=== PATIENT | male | born 1990 ===

== ENCOUNTER 2017-08-27 03:25 | Emergency (ER) | payer OTHER ==
--- NOTE | 2017-08-27 04:30 | ED PDOC ---
Lower Extremity Pain/Injury Chief Complaint (Provider): right lower leg trauma and cut History Per: Patient History/Exam Limitations: no limitations Onset/Duration Of Symptoms: Hrs Current Symptoms Are (Timing): Still Present Severity: Moderate Pain Scale Rating Of: 7 Additional History Per: Patient Additional Complaint(s): 27 yr old M presents to ED with complaint of trauma and laceration to RLE. Patient reports he was running home and could not see due to the rain, he accidentally ran into a street post and noticed blood coming from below his right knee. He made it home and noticed a cut below his right knee, he poured hydrogen peroxide on it and came to the ED. Denies any PMHx. Denies ingestions of Etoh or drugs. Patient does not have a PMD. PMD: none PMHx: denies SurgHx: denies FMHx: noncontributory SocHx: denies tobacco/ Etoh or drugs Medications: none Allergies: NKDA - Knee Description Of Injury: Laceration (below right knee) - Risk Factors DVT Risk Factors: Pos: None <Tatyana Santamaria - Last Filed: 08/27/17 06:42> <Abdon Cuenca - Last Filed: 08/27/17 21:09> Time Seen by Provider: 08/27/17 03:52 Chief Complaint (Nursing): Lower Extremity Problem/Injury Supervising Attending Note - Attestation: I have personally seen and examined this patient.: Yes I have fully participated in the care of the patient.: Yes I have reviewed all pertinent clinical information, including history, physical exam and plan: Yes - Notes: Notes:: I supervised the procedure. <Abdon Cuenca - Last Filed: 08/27/17 21:09> Past Medical History Vital Signs: Last Vital Signs Temp 98.3 F 08/27/17 03:38 Pulse 79 08/27/17 03:38 Resp 16 08/27/17 03:38 BP 133/88 08/27/17 03:38 Pulse Ox 98 08/27/17 03:38 - Medical History PMH: No Chronic Diseases - Surgical History Surgical History: No Surg Hx - Family History Family History: States: No Known Family Hx - Living Arrangements Living Arrangements: With Family - Social History Current smoker - smoking cessation education provided: No Ex-Smoker (has not smoked in the last 12 months): No Alcohol: None Drugs: Denies <Tatyana Santamaria - Last Filed: 08/27/17 06:42> Vital Signs: Last Vital Signs Temp 98.2 F 08/27/17 06:55 Pulse 77 08/27/17 06:55 Resp 18 08/27/17 06:55 BP 136/77 08/27/17 06:55 Pulse Ox 100 08/27/17 06:55 <Abdon Cuenca - Last Filed: 08/27/17 21:09> - Home Medications Home Medications: Ambulatory Orders Medication Instructions Recorded Cefuroxime Axetil [Cefuroxime] 500 mg PO Q12 10 Days #20 tablet 08/27/17 - Allergies Allergies/Adverse Reactions: Allergies Allergy/AdvReac Type Severity Reaction Status Date / Time No Known Allergies Allergy Verified 08/27/17 03:38 Wells Criteria for PE - Wells Criteria for Pulmonary Embolism Clinical Signs and Symptoms of DVT: No P.E is #1 Diagnosis, or Equally Likely: No Heart Rate >100: No Immobilization at least 3 days;Surgery previous 4 weeks: No Previous, objectively diagnosed PE or DVT: No Hemoptysis: No Malignancy w/treatment within 6 months, or palliative: No Total Score: 0 <Tatyana Santamaria - Last Filed: 08/27/17 06:42> Review of Systems Constitutional: Negative for: Fever, Chills ENT: Negative for: Throat Pain Cardiovascular: Negative for: Chest Pain, Palpitations Respiratory: Negative for: Cough, Shortness of Breath, Hemoptysis Gastrointestinal: Negative for: Nausea, Vomiting, Abdominal Pain, Diarrhea Genitourinary Male: Negative for: Dysuria, Frequency Musculoskeletal: Negative for: Neck Pain, Shoulder Pain, Arm Pain Skin: Positive for: Other (cut below right knee) Neurological: Negative for: Weakness, Numbness, Confusion, Seizures, Headache, Dizziness <Tatyana Santamaria - Last Filed: 08/27/17 06:42> Physical Exam - Physical Exam Appears: Positive for: No Acute Distress Head Exam: Positive for: ATRAUMATIC, NORMOCEPHALIC Skin: Positive for: Normal Color, Warm, Dry Eye Exam: Positive for: EOMI, PERRL ENT: Positive for: Normal ENT Inspection Neck: Positive for: Normal, Painless ROM, Supple Cardiovascular/Chest: Positive for: Regular Rate, Rhythm. Negative for: Gallop , Murmur Respiratory: Positive for: Normal Breath Sounds. Negative for: Crackles, Rales , Rhonchi Pulses-Carotid (L): 2+ Pulses-Carotid (R): 2+ Pulses-Dorsalis Pedis (L): 2+ Pulses-Dorsalis Pedis (R): 2+ Pulses-Post. Tibialis (L): 2+ Pulses-Post. Tibialis (R): 2+ Pulses-Radial (L): 2+ Pulses-Radial (R): 2+ Gastrointestinal/Abdominal: Positive for: Normal Exam, Bowel Sounds (present and normal), Soft. Negative for: Tenderness Back: Positive for: Normal Inspection Extremity: Positive for: Normal ROM, Other (2x2 cm deep laceration below right knee with subcutaneous tissue displaced and tunneling to proximal tibia). 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), Oriented, Mood/Affect (full range), Gait (favoring RLE) <Tatyana Santamaria - Last Filed: 08/27/17 06:42> - ECG O2 Sat by Pulse Oximetry: 98 - Progress ED Course And Treament: -Xray of right tibia/fibula -Ibuprofen 800mg PO once -irrigation of RLE laceration with 250cc sterile water -RLE laceration repaired with 4-0 ethilon non-absorbable sutures (6 stitches placed, wound dressed with bacitracin and steri strips) -patient able to bear weight on RLE Condition: Re-examined, Improved <Tatyana Santamaria - Last Filed: 08/27/17 06:42> Procedures - Laceration/Wound Repair Right Lower Anterior Distal Knee Wound Length (cm): 2 (2x2 cm ) Wound's Depth, Shape: into muscle, stellate, contused tissue Wound Explored: no foreign body removed Irrigated w/ Saline (ccs): 250 (sterile water) Betadine Prep?: No Anesthesia: 1% Lidocaine Wound Debrided: minimal Wound Repaired With: Sutures, Steri-strips Suture Size/Type: 4:0 (ethilon, non-absorbable) Number of Sutures: 6 Layer Closure?: No Wound Complexity: Intermediate Sterile Dressing Applied?: No (applied bacitracin and steri strips) Splint Applied?: No Sling Applied?: No <Tatyana Santamaria - Last Filed: 08/27/17 06:42> Disposition - Patient ED Disposition Is Patient to be Admitted: No Counseled Patient/Family Regarding: Diagnosis, Need For Followup, Rx Given - Disposition Disposition: Routine/Home Disposition Time: 06:07 <Tatyana Santamaria - Last Filed: 08/27/17 06:42> <Abdon Cuenca - Last Filed: 08/27/17 21:09> - Clinical Impression Clinical Impression: Laceration of right lower leg - Disposition Referrals: [facility] [Provider Group] Condition: GOOD Additional Instructions: -Keep wound dry x 24hrs -take ibuprofen 600mg PO Q6 PRN pain with food -take antibiotics as prescribed -Go to clinic or return to [facility] ED in 7-10 days for suture removal -If wound worsens, has erythema or discharge, or any concerns, return to ED Prescriptions: Cefuroxime Axetil [Cefuroxime] 500 mg PO Q12 10 Days #20 tablet Instructions: Laceration Repair, Wound Care (DC), Laceration Repair With Stitches (DC), Laceration Infection (DC) Forms: [employer] (Macedonian) Print Language: GERMAN
[2017-08-27] MEDS ORDERED: Lidocaine 1% 20 MG/2 ML PF AMP SC ONE (05:16)
[2017-08-27] MEDS ORDERED: Tdap Vaccine 0.5 ml Vial (10-64 yrs) IM ONE ×2 (06:29→06:50)
[2017-08-27 08:43] VITALS: BP 136/77; PULSE 77; RESP 18; TEMP 98.2; O2SAT 100
--- NOTE | 2017-08-27 10:47 | RAD ---
Date of service: 08/27/2017 PROCEDURE: Radiographs of the right tibia and fibula. HISTORY: trauma, laceration COMPARISON: None available. TECHNIQUE: Frontal and lateral views obtained. FINDINGS: BONES: No fracture or destructive lesion. JOINT SPACES: Unremarkable. OTHER FINDINGS: None. IMPRESSION: Unremarkable radiographs of the right tibia and fibula.
== END 2017-08-27 06:57 | disposition home or self-care (01) ==
LOC: H.ER 03:25
DX: S81.811A Laceration without foreign body, right lower leg, initial encounter (principal); W22.8XXA Striking against or struck by other objects, initial encounter; Y93.02 Activity, running; Z87.891 Personal history of nicotine dependence; Z23 Encounter for immunization

== ENCOUNTER 2017-09-05 14:55 | Emergency (ER) | payer OTHER ==
[2017-09-05 15:13] VITALS: BP 133/72; PULSE 66; RESP 18; TEMP 98.1; O2SAT 100
--- NOTE | 2017-09-05 16:23 | ED PDOC ---
HPI: Wound Care - HPI Time Seen by Provider: 09/05/17 16:22 Chief Complaint (Nursing): Suture/Staple Removal Additional Complaint(s): 27-year-old male, presents to the emergency department for suture removal. Patient was seen in ED nine days ago, and had six sutures placed to right knee, after running into something by accident. He denies any fever, nausea/vomiting, numbness/weakness, or any other associated symptoms. No other complaints at this time. Past Medical History Reviewed: Historical Data, Nursing Documentation, Vital Signs Vital Signs: Last Vital Signs Temp 98.1 F 09/05/17 15:10 Pulse 66 09/05/17 15:10 Resp 18 09/05/17 15:10 BP 133/72 09/05/17 15:10 Pulse Ox 100 09/05/17 15:10 - Family History Family History: States: No Known Family Hx - Home Medications Home Medications: Ambulatory Orders Medication Instructions Recorded Cefuroxime Axetil [Cefuroxime] 500 mg PO Q12 10 Days #20 tablet 08/27/17 - Allergies Allergies/Adverse Reactions: Allergies Allergy/AdvReac Type Severity Reaction Status Date / Time No Known Allergies Allergy Verified 09/05/17 15:10 Review of Systems Constitutional: Negative for: Fever, Chills Respiratory: Negative for: Shortness of Breath Gastrointestinal: Negative for: Nausea, Vomiting Neurological: Negative for: Weakness, Numbness Physical Exam - Reviewed Nursing Documentation Reviewed: Yes Vital Signs Reviewed: Yes - Physical Exam Appears: Positive for: Non-toxic, No Acute Distress Head Exam: Positive for: ATRAUMATIC Skin: Positive for: Warm, Dry. Negative for: Rash Eye Exam: Positive for: Normal appearance Neck: Positive for: Painless ROM Respiratory: Negative for: Accessory Muscle Use Extremity: Positive for: Other (right anterior knee with 6 sutures. No surrounding erythema, warmth or signs of infection). Negative for: Deformity, Swelling Neurologic/Psych: Positive for: Alert, Oriented - ECG O2 Sat by Pulse Oximetry: 100 Pulse Ox Interpretation: Normal (RA) Medical Decision Making Medical Decision Making: six sutures removed from right anterior knee. Pt tolerated well. No complications. Wound is well healing, instructed to f/u outpatient. Scribe Attestation: Documented by Celine Lee, acting as a scribe for IRENA Zhao. Provider Scribe Attestation: All medical record entries made by the Scribe were at my direction and personally dictated by me. I have reviewed the chart and agree that the record accurately reflects my personal performance of the history, physical exam, medical decision making, and the department course for this patient. I have also personally directed, reviewed, and agree with the discharge instructions and disposition. Disposition - Clinical Impression Clinical Impression: Removal of suture - Patient ED Disposition Is Patient to be Admitted: No - Disposition Disposition: Routine/Home Disposition Time: 16:27 Condition: FAIR Instructions: Stitches Removal Print Language: WOLOF
== END 2017-09-05 17:02 | disposition home or self-care (01) ==
LOC: H.ER 14:55
DX: Z48.02 Encounter for removal of sutures (principal)

== ENCOUNTER 2017-10-04 18:25 | Emergency (ER) | payer OTHER ==
[2017-10-04 18:48] VITALS: BP 132/83; PULSE 73; RESP 18; TEMP 98.2; O2SAT 100
--- NOTE | 2017-10-04 18:59 | ED PDOC ---
HPI: Wound Care - HPI Time Seen by Provider: 10/04/17 18:48 Chief Complaint (Nursing): Wound Check Chief Complaint (Provider): wound check History Per: Patient, [employer] (Malawian, [id number]) Exam Limitations: no limitations Onset/Duration Of Symptoms: Days (x1 month) Current Symptoms Are (Timing): Better Additional Complaint(s): 27 year old male presents to the ED for evaluation of a healing wound to his right leg. He reports one month ago sustaining the laceration and having it sutured. Today, he expresses concern over infection and general check up of the wound. Denies drainage and active bleeding from the area. PMD: none provided Past Medical History Reviewed: Historical Data, Nursing Documentation, Vital Signs Vital Signs: Last Vital Signs Temp 98.2 F 10/04/17 18:45 Pulse 73 10/04/17 18:45 Resp 18 10/04/17 18:45 BP 132/83 10/04/17 18:45 Pulse Ox 100 10/04/17 18:45 - Medical History PMH: No Chronic Diseases - Surgical History Surgical History: No Surg Hx - Family History Family History: States: No Known Family Hx - Living Arrangements Living Arrangements: With Family - Social History Current smoker - smoking cessation education provided: No Alcohol: None Drugs: Denies - Immunization History Hx Tetanus Toxoid Vaccination: Yes - Home Medications Home Medications: Ambulatory Orders Medication Instructions Recorded Cefuroxime Axetil [Cefuroxime] 500 mg PO Q12 10 Days #20 tablet 08/27/17 - Allergies Allergies/Adverse Reactions: Allergies Allergy/AdvReac Type Severity Reaction Status Date / Time No Known Allergies Allergy Verified 10/04/17 18:45 Review of Systems ROS Statement: Except As Marked, All Systems Reviewed And Found Negative Skin: Positive for: Other (healing wound to right leg) Physical Exam - Reviewed Nursing Documentation Reviewed: Yes Vital Signs Reviewed: Yes - Physical Exam Appears: Positive for: Well, Non-toxic, No Acute Distress Head Exam: Positive for: ATRAUMATIC, NORMAL INSPECTION, NORMOCEPHALIC Skin: Positive for: Normal Color. Negative for: Rash Eye Exam: Positive for: Normal appearance Extremity: Positive for: Other (well healing wound to right proximal nguyen; no infection noted) Neurologic/Psych: Positive for: Alert, Oriented - ECG O2 Sat by Pulse Oximetry: 100 (RA) Pulse Ox Interpretation: Normal Medical Decision Making Medical Decision Making: Time: 1854 Impression: 27 year old male with well healing wound to right proximal nguyen Plan: --No acute intervention indicated at this time. Wound is well healed. Patient was referred to clinic for follow up. Scribe Attestation: Documented by Jagruti Maza, acting as a scribe for Lyubov Finnegan PA-C. Provider Scribe Attestation: All medical record entries made by the Scribe were at my direction and personally dictated by me. I have reviewed the chart and agree that the record accurately reflects my personal performance of the history, physical exam, medical decision making, and the department course for this patient. I have also personally directed, reviewed, and agree with the discharge instructions and disposition. Disposition - Clinical Impression Clinical Impression: Encounter for wound re-check - Patient ED Disposition Is Patient to be Admitted: No Counseled Patient/Family Regarding: Need For Followup - Disposition Referrals: [facility] [Outside] Disposition: Routine/Home Disposition Time: 18:58 Condition: STABLE Additional Instructions: Follow up as needed with clinic. Instructions: Wound Care (DC) Forms: [employer] (Malawian) Print Language: MOHAWK
== END 2017-10-04 19:22 | disposition home or self-care (01) ==
LOC: H.ER 18:25
DX: Z48.00 Encounter for change or removal of nonsurgical wound dressing (principal)